=== PATIENT | male | born 1965 | race Caucasian/White ===

== ENCOUNTER 2019-05-21 07:43 | Day surgery (SDC) | payer BC ==
[2019-05-21] MEDS ORDERED: Dextrose 5%-Lactated Ringers 1,000 ML IV SCH (08:45)
[2019-05-21] MEDS ORDERED: Bupivacaine 0.5%/EPINEPHrine 1:200,000 50 ML MDV ONE (09:03)
[2019-05-21] MEDS ORDERED: Bupivacaine 0.5% 50 ML MDV ONE (09:05)
[2019-05-21] MEDS ORDERED: Lidocaine 1% with EPINEPHrine 1:100,000 50 ML MDV ONE (09:05)
[2019-05-21] MEDS ORDERED: fentaNYL 250 MCG/5 ML SDV ONE (09:59)
[2019-05-21] MEDS ORDERED: Rocuronium 50 MG/5 ML Vial ONE (10:00)
[2019-05-21] MEDS ORDERED: Glycopyrrolate 0.2 MG/ML 5 ML MDV ONE (10:00)
[2019-05-21] MEDS ORDERED: Neostigmine Methylsulfate 1 MG/ML 5 ML Syringe ONE (10:00)
[2019-05-21] MEDS ORDERED: Ondansetron 4 MG/2 ML SDV ONE (10:00)
[2019-05-21] MEDS ORDERED: Succinylcholine 200 MG/10 ML MDV ONE (10:00)
[2019-05-21] MEDS ORDERED: Dexamethasone 4 MG/ML SDV ONE (10:00)
[2019-05-21] MEDS ORDERED: Propofol 200 MG/20 ML SDV ONE (10:00)
[2019-05-21] MEDS: cefOXitin 2 GM in Sodium Chloride 0.9% 50 ML IV ONE ×2 (10:38→12:16)
[2019-05-21] MEDS ORDERED: Lactated Ringers 1,000 ML ONE (10:50)
[2019-05-21] MEDS ORDERED: fentaNYL 100 MCG/2 ML SDV IVPUSH PRN (11:23)
[2019-05-21] MEDS ORDERED: hydrOXYzine HCl 100 MG/2 ML SDV IM PRN (11:23)
[2019-05-21] MEDS ORDERED: Acetaminophen/HYDROcodone 325-5 MG Tab PO PRN (11:23)
[2019-05-21] MEDS ORDERED: Ondansetron 4 MG/2 ML SDV IVPUSH PRN (11:23)
[2019-05-21] MEDS ORDERED: hydrOXYzine HCl 100 MG/2 ML SDV IM ONE (11:27)
[2019-05-21] MEDS ORDERED: Lactated Ringers 1,000 ML IV SCH (11:30)
[2019-05-21] MEDS ORDERED: fentaNYL 100 MCG/2 ML SDV IVPUSH ONE (11:37)
--- NOTE | 2019-05-21 16:48 | PCM.DCSUM1 ---
Discharge Summary - Hospital Course Free Text/Narrative:: This 54 year old white male complains of upper abdominal pain. CT of his abdomen and pelvis showed no cholelithiasis and no ductal dilatation. A CCK stimulated HIDA showed a low ejection fraction of 16% consistent with biliary dyskinesia and chronic cholelithiasis. His LFT's are unremarkable. He is admitted for a laparoscopic cholecystectomy. This was done this morning. He currently is eating well, feels well and wants to go home. He is discharged at this time in good condition. Brief History: See above narrative. Diagnosis: Stroke: No - Discharge Data Discharge Date: 05/21/19 Discharge Disposition: Home, Self-Care 01 Condition: Good - Discharge Diagnosis/Problem(s) (1) Biliary dyskinesia SNOMED Code(s): 864189807 ICD Code: K82.8 - OTHER SPECIFIED DISEASES OF GALLBLADDER Status: Acute Current Visit: Yes - Patient Summary/Data Operative Procedure(s) Performed: Laparoscopic cholecystectomy Consults: Consultations 05/21/19 11:23 Respiratory Care Assess and Treatment [CONS] Routine Comment: Physician Instructions: Post-Op Pneumonia Prevention Hospital Course: See above narrative. - Patient Instructions Diet: Usual Diet as Tolerated Activity: As Tolerated (Avoid activity that causes discomfort) Driving, Other: Do not drive while taking narcotic pain medication. Showering/Bathing: No Tub Bathing/Swimming, Shower in AM Notify Provider of: Fever, Increased Pain, Swelling and Redness, Drainage, Nausea and/or Vomiting - Discharge Plan *PRESCRIPTION DRUG MONITORING PROGRAM REVIEWED*: No *COPY OF PRESCRIPTION DRUG MONITORING REPORT IN PATIENT KRISTIN: No Prescriptions/Med Rec: Acetaminophen/HYDROcodone [[place] 325-5 MG] 2 tab PO Q4H PRN #30 tablet PRN Reason: Pain (Moderate 4-6) Home Medications: Home Meds Lisinopril [Prinivil] 20 mg PO DAILY 05/17/19 [History] Warfarin [Coumadin] 10 mg PO DAILY 05/17/19 [History] Acetaminophen/HYDROcodone [[place] 325-5 MG] 2 tab PO Q4H PRN #30 tablet 05/21/19 [Rx] Referrals: Vincenzo Kendall MD [Physician] - - Discharge Summary/Plan Comment DC Time >30 min.: Yes - General Info Date of Service: 05/21/19 Admission Dx/Problem (Free Text: Chronic cholecystitis and biliary dyskinesia. Subjective Update: Doing fine. He wants to go home. - Review of Systems General: Reports: No Symptoms HEENT: Reports: No Symptoms Pulmonary: Reports: No Symptoms Cardiovascular: Reports: No Symptoms Gastrointestinal: Reports: Abdominal Pain (He says it is not bad. ) Genitourinary: Reports: No Symptoms Musculoskeletal: Reports: No Symptoms Skin: Reports: No Symptoms Neurological: Reports: No Symptoms Psychiatric: Reports: No Symptoms - Patient Data Vitals - Most Recent: Last Vital Signs Temp 98 F 05/21/19 15:56 Pulse 70 05/21/19 15:56 Resp 16 05/21/19 15:56 BP 122/72 05/21/19 15:56 Pulse Ox 97 05/21/19 15:56 Weight - Most Recent: 240 lb I&O - Last 24 hours: Intake & Output 05/21/19 05/21/19 05/21/19 06:59 14:59 22:59 Intake Total 844 Balance 844 Lab Results - Last 24 hrs: Laboratory Results - last 24 hr 05/21/19 05/21/19 Range/Units 08:11 08:11 PT 12.3 H (9.5-12.0) sec INR 1.15 D (0.80-1.20) Total Bilirubin 0.7 (0.2-1.0) mg/dL Direct Bilirubin 0.11 (0.0-0.2) mg/dL Indirect Bilirubin 0.59 AST 22 (15-37) U/L ALT 29 (12-78) U/L Alkaline Phosphatase 65 (46-116) U/L Total Protein 7.7 (6.4-8.2) g/dL Albumin 4.0 (3.4-5.0) g/dL Globulin 3.7 H (2.3-3.5) g/dL Albumin/Globulin Ratio 1.1 L (1.2-2.2) JOSÉ LUIS Results - Last 24 hrs: Microbiology 05/21/19 10:52 Gram Stain - Final Gallbladder Fluid - Bile Med Orders - Current: Current Medications Hydrocodone Bitart/Acetaminophen ([place] 325-5 Mg) 2 tab PO Q4H PRN PRN Reason: Pain (moderate 4-6) Last Admin: 05/21/19 15:46 Dose: 2 tab Fentanyl (Sublimaze) 50 mcg IVPUSH Q1H PRN PRN Reason: Pain (severe 7-10) Last Admin: 05/21/19 11:40 Dose: 50 mcg Hydroxyzine HCl (Vistaril) 50 mg IM Q4H PRN PRN Reason: Nausea Dextrose/Lactated Ringer's (Dextrose 5%-Lactated Ringers) 1,000 mls @ 100 mls/ hr IV ASDIRECTED [facility] Last Admin: 05/21/19 08:29 Dose: 100 mls/hr Lactated Ringer's (Ringers, Lactated) 1,000 mls @ 125 mls/hr IV ASDIRECTED [facility] Last Admin: 05/21/19 12:17 Dose: 125 mls/hr Lisinopril (Prinivil) 20 mg PO DAILY [facility] Ondansetron HCl (Zofran) 4 mg IVPUSH Q6H PRN PRN Reason: Nausea/Vomiting Discontinued Medications Bupivacaine HCl (Marcaine 0.5%) Confirm Administered Dose 50 ml .ROUTE .STK-MED ONE Stop: 05/21/19 09:06 Last Admin: 05/21/19 10:41 Dose: 20 ml Bupivacaine HCl/Epinephrine Bitart (Marcaine 0.5%/Epinephrine 1:200,000) Confirm Administered Dose 50 ml .ROUTE .STK-MED ONE Stop: 05/21/19 09:04 Dexamethasone (Dexamethasone) Confirm Administered Dose 4 mg .ROUTE .STK-MED ONE Stop: 05/21/19 10:01 Fentanyl (Sublimaze) Confirm Administered Dose 250 mcg .ROUTE .STK-MED ONE Stop: 05/21/19 10:00 Fentanyl (Sublimaze) 50 mcg IVPUSH ONETIME ONE Stop: 05/21/19 11:38 Last Admin: 05/21/19 14:10 Dose: Not Given Glycopyrrolate (Robinul) Confirm Administered Dose 1 mg .ROUTE .STK-MED ONE Stop: 05/21/19 10:01 Hydroxyzine HCl (Vistaril) 100 mg IM ONETIME ONE Stop: 05/21/19 11:28 Last Admin: 05/21/19 11:33 Dose: 100 mg Cefoxitin Sodium 2 gm/ Sodium (Chloride) 50 mls @ 100 mls/hr IV ONETIME ONE Stop: 05/21/19 09:14 Last Admin: 05/21/19 12:16 Dose: Not Given Lactated Ringer's (Ringers, Lactated) Confirm Administered Dose 1,000 mls @ as directed .ROUTE .[place]-MED ONE Stop: 05/21/19 10:51 Lidocaine/Epinephrine (Xylocaine 1% With Epinephrine 1:100,000) Confirm Administered Dose 50 ml .ROUTE .[place]-MED ONE Stop: 05/21/19 09:06 Last Admin: 05/21/19 10:42 Dose: 20 ml Neostigmine Methylsulfate (Neostigmine) Confirm Administered Dose 5 mg .ROUTE .[place]-MED ONE Stop: 05/21/19 10:01 Ondansetron HCl (Zofran) Confirm Administered Dose 4 mg .ROUTE .[place]-MED ONE Stop: 05/21/19 10:01 Propofol (Diprivan 20 Ml) Confirm Administered Dose 200 mg .ROUTE .[place]-MED ONE Stop: 05/21/19 10:01 Rocuronium [place] (Zemuron) Confirm Administered Dose 50 mg .ROUTE .[place]-MED ONE Stop: 05/21/19 10:01 Succinylcholine Chloride (Quelicin) Confirm Administered Dose 200 mg .ROUTE .[place] -MED ONE Stop: 05/21/19 10:01 - Exam General: Reports: Alert, Oriented, Cooperative, No Acute Distress Lungs: Reports: Clear to Auscultation Cardiovascular: Reports: Regular Rate Skin: Reports: Warm, Dry Wound/Incisions: Reports: Healing Well Psy/Mental Status: Reports: Alert, Normal Affect, Normal Mood Discharge Operative/Procedures - Procedures Performed Arterial Line Indication: hemodynamic monitoring Operations/Procedure Comment: Laparoscopic cholecystectomy;
--- NOTE | 2019-05-22 08:23 | OR ---
DATE OF PROCEDURE: 05/21/2019 PREOPERATIVE DIAGNOSES: Chronic cholecystitis with biliary dyskinesia. POSTOPERATIVE DIAGNOSIS: Chronic cholecystitis with biliary dyskinesia. PROCEDURE: Laparoscopic cholecystectomy. SURGEON: Vincenzo Kendall MD ANESTHESIA: General endotracheal. INDICATION: This 54-year-old white male complains of intermittent episodes of upper abdominal pain. He was studied with an ultrasound being unremarkable. A CCK- stimulated HIDA scan was abnormal; however, with an ejection fraction only 16%. This is consistent with biliary dyskinesia and chronic cholecystitis. Liver functions were unremarkable. He was taken to the operating room for a laparoscopic cholecystectomy. He has had no prior abdominal surgery. I counseled him for the procedure, including risks and alternatives, and he gave his informed consent to proceed. He does take Eliquis. He has been off the Eliquis. His coagulation studies are unremarkable at the present time. DESCRIPTION OF PROCEDURE: After adequate general endotracheal anesthesia was obtained, the patient's abdomen was prepped and draped in the usual sterile fashion. Time -out was held. An infraumbilical semicircular incision was made. Under direct vision, a 12-mm port was introduced into the abdomen through this incision using the Optiview technique. The camera was introduced into the abdomen, and the abdomen was insufflated to a pressure of 15 mmHg with carbon dioxide. No evidence of intraabdominal injury was seen. Under direct vision, a 12-mm port was placed in the epigastrium and a 5-mm port was placed in the right lower quadrant. The gallbladder was grasped and elevated. The cystic duct and arteries were dissected free. They were each clipped up on the gallbladder and several times proximally and divided. The gallbladder was then dissected free from the gallbladder bed using Bovie electrocautery. During this process, we opened the gallbladder and aspirated the contents free. No stones were encountered. The gallbladder was then placed in a sample retrieval bag and elevated up through the anterior abdominal wall via the epigastric port site. The epigastric port was reintroduced back into the abdomen. The gallbladder bed was irrigated and suctioned dry. There was very faint very minimal bleeding in the area of the divided cystic artery and duct. We placed FloSeal over this because he will be going back on Eliquis. All looked well. The epigastric port was removed with the fascial closure device used to close the fascia here with 0 Vicryl. The infraumbilical port was then removed with an interrupted stitch of 0 Vicryl used to close this fascial defect. We evacuated as much CO2 as we could from the abdomen via the 5-mm port site in the right lower quadrant , and then this port was removed. Lidocaine 1% with epinephrine in a 50:50 mix with 0.5% Marcaine was infiltrated about all incisions. 4-0 Vicryl using a subcuticular stitch was placed to approximate the skin incisions. Dermabond was applied. The anesthesia was reversed. He was extubated and brought to recovery room in good condition. Vincenzo Kendall MD /[id number] VIC
[2019-05-22] MEDS ORDERED: Lisinopril 20 MG Tab PO SCH (09:00)
== END 2019-05-21 17:25 | disposition home or self-care (01) ==
LOC: JP.SDS 07:43 → JP.MS 11:23 → JP.SDS 17:25
PROVIDERS: ATTEND Surgery
DX: K81.1 Chronic cholecystitis (principal); I89.8 Other specified noninfective disorders of lymphatic vessels and lymph nodes; I10 Essential (primary) hypertension; E78.5 Hyperlipidemia, unspecified; F32.9 Major depressive disorder, single episode, unspecified; K21.9 Gastro-esophageal reflux disease without esophagitis; Z86.711 Personal history of pulmonary embolism; Z79.01 Long term (current) use of anticoagulants; Z79.899 Other long term (current) drug therapy
CPT/HCPCS: 36415; 47562; 80076; 85610; 87070; 87075; 87205; A9270; J0330; J0694; J1100; J2405; J2704; J2710; J3010; J3410; J3490; J7042; J7050; J7120; 88304